=== PATIENT | female | born 1975 | race Caucasian/White ===

== ENCOUNTER → 2020-09-22 16:46 | Outpatient (CLI) | payer OTHER, SELFPAY ==
[2020-09-22 17:43] LABS: Absolute Lymphocyte Count 2.09 X10^3/uL (0.83-4.51); Basophil# 0.06 X10^3/uL; Basophil% 0.6 % (0-1); Eosinophil# 0.11 X10^3/uL; Hematocrit 41.7 % (37-47); Hemoglobin 13.3 g/dL (12.0-15.0); Lymphocyte # 2.09 X10^3/ul (0.83-4.51); Lymphocyte % 19.2 % (19-41); Mean Corp Hgb Conc 31.9 g/dL (32-36); Mean Corpuscular Hgb 28.5 pg (27.0-32.0); Mean Corpuscular Volume 89.3 fL (81-99); Mean Platelet Vol. 13.7 fl (6.2-12.0); Monocyte% 5.5 % (0-10); NRBC Flagged by Analyzer 0 % (0-5); Neutrophil # 7.96 X10^3/uL (2.7-7.7); Neutrophil % 73.2 % (47-70); Platelet Count 103 K/mm3 (150-450); RBC Distribution Width CV 13.2 % (11.6-14.6); RBC Distribution Width SD 42.9 fl (35.1-43.9); Red Blood Count 4.67 M/mm3 (4.2-5.4); White Blood Count 10.9 K/mm3 (4.4-11.0)
[2020-09-22 17:58] LABS: Erythrocyte Sedimentation Rate 10 mm/hr (0-30)
[2020-09-22 18:01] LABS: T4 Total, Thyroxin 9.3 ug/dL (4.8-13.9)
[2020-09-24 16:10] LABS: EBV Acute VCA IgM < 36.0 U/mL (0.0-35.9)
== END ==
PROVIDERS: PCP Internal Medicine; Referring Provider Internal Medicine; Visit Provider Internal Medicine
DX: D72.829 Elevated white blood cell count, unspecified (principal); Z86.16 Personal history of COVID-19
CPT/HCPCS: 36415; 84436; 85025; 85652; 86664; 86665; 86769

== ENCOUNTER → 2020-10-13 | Outpatient (CLI) | payer OTHER, SELFPAY | END | disposition home or self-care (01) | LOC: LABSPEC 15:11 | PROVIDERS: PCP Internal Medicine; Referring Provider Internal Medicine; Visit Provider Internal Medicine | DX: R30.0 Dysuria (principal) | CPT/HCPCS: 87086; 87088; 87186 ==

== ENCOUNTER → 2020-12-07 12:57 | Outpatient (CLI) | payer OTHER, SELFPAY ==
[2020-12-07 15:15] LABS: Platelet Count 109 K/mm3 (150-450)
== END ==
PROVIDERS: PCP Internal Medicine; Referring Provider Internal Medicine; Visit Provider Internal Medicine
DX: D69.3 Immune thrombocytopenic purpura (principal)
CPT/HCPCS: 36415; 85049; 86769

== ENCOUNTER → 2021-02-23 12:45 | Outpatient (CLI) | payer OTHER, SELFPAY ==
[2021-02-23 15:23] LABS: Basophil# 0.06 X10^3/uL; Basophil% 0.6 % (0-1); Hematocrit 37.9 % (37-47); Hemoglobin 11.9 g/dL (12.0-15.0); Lymphocyte % 18.9 % (19-41); Mean Corp Hgb Conc 31.4 g/dL (32-36); Mean Corpuscular Hgb 28.5 pg (27.0-32.0); Mean Corpuscular Volume 90.7 fL (81-99); Mean Platelet Vol. 13.9 fl (6.2-12.0); Monocyte# 0.56 X10^3/uL; Monocyte% 5.9 % (0-10); NRBC Flagged by Analyzer 0 % (0-5); Neutrophil # 6.98 X10^3/uL (2.7-7.7); Neutrophil % 73.2 % (47-70); Platelet Count 105 K/mm3 (150-450); RBC Distribution Width CV 13.7 % (11.6-14.6); RBC Distribution Width SD 45.6 fl (35.1-43.9); Red Blood Count 4.18 M/mm3 (4.2-5.4); White Blood Count 9.5 K/mm3 (4.4-11.0)
[2021-02-23 15:36] LABS: Vitamin B12 539 pg/mL (211-911)
[2021-02-23 15:56] LABS: ALB/GLOB Ratio 0.9 RATIO (0.9-2.4); AST(SGOT) 21 U/L (15-37); Alanine Aminotransfer ALT/SGPT 38 U/L (13-56); Albumin, Serum 3.7 g/dL (3.2-5.0); Alkaline Phosphatase 71 U/L (45-117); Anion Gap 4 (5-15); BUN 11 mg/dL (7-18); BUN/Creat Ratio 16.4 RATIO (10-20); Chloride 105 mmol/L (98-107); Creatinine, Serum 0.67 mg/dL (0.55-1.02); EST Glomerular Filtration Rate 101 mL/min (>60); Est Glom Filt Rate - Afr Amer 122 mL/min (>60); Ferritin 25 ng/mL (8-252); Globulin 4.3 g/dL (2.2-4.2); Glucose 106 mg/dL (74-106); Iron 54 ug/dL (50-170); Iron Binding Capacity,Total 371 ug/dL (250-450); PERCENT IRON SATURATION 14.6 % (15.0-55.0); Potassium 3.9 mmol/L (3.5-5.1); Sodium Level 135 mmol/L (136-145)
== END ==
PROVIDERS: PCP Internal Medicine; Referring Provider Internal Medicine; Visit Provider Internal Medicine
DX: N93.9 Abnormal uterine and vaginal bleeding, unspecified (principal)
CPT/HCPCS: 36415; 80053; 82607; 82728; 82746; 83540; 83550; 85025

== ENCOUNTER → 2021-03-01 | Outpatient (CLI) | payer OTHER, SELFPAY ==
[2021-03-04 19:57] LABS: HPV Reflexed? NOT INDICATED
== END | disposition home or self-care (01) ==
LOC: LABSPEC 15:37
PROVIDERS: PCP Internal Medicine; Referring Provider Internal Medicine; Visit Provider Internal Medicine
DX: N93.9 Abnormal uterine and vaginal bleeding, unspecified (principal)
CPT/HCPCS: 88175; G0145

== ENCOUNTER → 2021-04-14 08:21 | Outpatient (CLI) | payer OTHER, SELFPAY ==
[2021-04-14 10:33] LABS: Absolute Lymphocyte Count 1.58 X10^3/uL (0.83-4.51); Absolute Neutrophil Count 4.8 X10^3/uL (2.0-7.7); Basophil# 0.06 X10^3/uL; Basophil% 0.8 % (0-1); Eosinophils% 1.4 % (0-5); Hematocrit 33.8 % (37-47); Hemoglobin 10.4 g/dL (12.0-15.0); Lymphocyte # 1.58 X10^3/ul (0.83-4.51); Lymphocyte % 22.1 % (19-41); Mean Corp Hgb Conc 30.8 g/dL (32-36); Mean Corpuscular Hgb 25.9 pg (27.0-32.0); Mean Corpuscular Volume 84.3 fL (81-99); Mean Platelet Vol. 12.9 fl (6.2-12.0); Monocyte# 0.58 X10^3/uL; Monocyte% 8.1 % (0-10); NRBC Flagged by Analyzer 0 % (0-5); Neutrophil % 67.3 % (47-70); Platelet Count 228 K/mm3 (150-450); RBC Distribution Width CV 14.3 % (11.6-14.6); RBC Distribution Width SD 44.3 fl (35.1-43.9); Red Blood Count 4.01 M/mm3 (4.2-5.4); White Blood Count 7.1 K/mm3 (4.4-11.0)
[2021-04-14 10:46] LABS: Ferritin 3 ng/mL (8-252)
== END ==
PROVIDERS: PCP Internal Medicine; Referring Provider Internal Medicine; Visit Provider Internal Medicine
DX: D64.9 Anemia, unspecified (principal); R79.0 Abnormal level of blood mineral; M54.9 Dorsalgia, unspecified
CPT/HCPCS: 36415; 82728; 85025

== ENCOUNTER 2021-04-21 09:27 | Day surgery (SDC) | payer OTHER, SELFPAY ==
--- NOTE | 2021-04-19 10:32 | PCM.HP.BLA ---
History and Physical Date of Admission: 04/21/21 HPI: The patient is a 46 year old female presenting for pre-operative visit. She is scheduled for hysteroscopy, D&C with endometrial ablation, for abnormal uterine bleeding and anemia on 04/21/2021.. Procedure discussed along with risks, benefits and complications. Other alternatives discussed for management. Consent form signed? Yes. ? ? PAST MEDICAL HISTORY PAST MEDICAL HISTORY Diagnosis Date ? Dysmenorrhea ? ? Excessive or frequent menstruation ? ? Heavy periods resolved ? PMH - PAST MEDICAL HISTORY OF ? ? ITP ? ? PAST SURGICAL HISTORY PAST SURGICAL HISTORY Procedure Laterality Date ? D&C, DIAG AND/OR THERAPEUTIC ? ? ? Dilation & curettage X3 ? HYSTEROSCOPY, DIAGNOSTIC (SEPARATE ? 03/25/2004 ? Hysteroscopy ? ? ? CURRENT MEDICATIONS Current Outpatient Medications Medication Sig Dispense Refill ? amoxicillin-clavulanate (AUGMENTIN) 600-42.9 mg/5 mL suspension take 5 milliliters by mouth twice a day for 14 days DISCARD EXCESS MEDICATION ? ? ? ferrous sulfate 220 mg (44 mg iron)/5 mL solution take 5 milliliters by mouth twice a day ? ? ? norethindrone (AYGESTIN) 5 mg tablet Take 1 tablet by mouth once daily. ONE PO Q 1 HR UNTIL BLEEDING SLOWS, UP TO 5 TABS TODAY. THEN ONE PO QID X 3 DAYS THEN TID X 3 DAYS THEN BID X 3 DAYS THEN ONE QDAY. 30 tablet 1 ? No current facility-administered medications for this visit. ? ? ALLERGIES: Cats, Dogs, and Ragweed ? PERSONAL HISTORY: SOCIAL HISTORY Social History ? Tobacco Use ? Smoking status: Former Smoker ? ? Types: Cigarettes ? ? Quit date: 06/30/1994 ? ? Years since quittin.8 ? Smokeless tobacco: Never Used ? Tobacco comment: Pt smoked very minimal while in college for 2 years. Vaping Use ? Vaping Use: Never used Substance Use Topics ? Alcohol use: Yes ? ? Comment: occasional [ 7 month] ? Drug use: No ? FAMILY HISTORY: FAMILY HISTORY FAMILY HISTORY Problem Relation Age of Onset ? Heart Mother ? ? Heart Father ? ? Asthma Sister ? ? Cancer Maternal Uncle ? ? ? lymphoma ? ? REVIEW OF SYMPTOMS: GENERAL: denies fevers or chills ENDOCRINOLOGY: has not been on steroids Cardiology : denies palpitations or chest pain Respiratory: denies SOB or cough Hematology: denies history of prolonged bleeding or easy bruising or VTE Allergy: Denies history of personal or family history of allergy to anesthesia ? PHYSICAL EXAMINATION: ? VITALS: Last menstrual period 02/16/2021. ? GENERAL: The patient is well nourished, well hydrated in no acute distress. , The patient is oriented to time, place, and person. NECK: Supple. No lynphadenopathy, normal thyroid, no thyromegaly. LUNGS: Clear to auscultation bilaterally. no wheezes, rhonchi or rales HEART: Regular rate and rhythm, Normal heart sounds and No murmurs or gallops ? ? IMPRESSION: Abnormal uterine bleeding ? PLAN: The risks/benefits/alternatives and personal involved for the planned hysteroscopy, dilation and curettage with endometrial ablation were reviewed with the patient. Her questions were answered to her satisfaction and she desires to proceed. Consent was signed. I reviewed with her postop instructions and expectations. ? I have reviewed and updated past medical and surgical history, medications and allergies This H&P was completed in my office on 04/13/21 Assessment & Plan Assessment/Plan (1) Abnormal uterine bleeding (AUB): (2) Iron deficiency anemia due to dietary causes:
[2021-04-21] VITALS (7 sets, daily range): BP systolic 90–126; BP diastolic 59–88; PULSE 61–92; RESP 16–18; TEMP 36.2–37.3; O2SAT 94–100; BMI 26.9
[2021-04-21] MEDS: Lactated Ringers 1,000 ML 15 ML IV (10:13)
[2021-04-21 10:21] LABS: Internal QC Validated? YES +Cl - CLEAR BKGD; Pregnancy, Urine Negative Negative
--- NOTE | 2021-04-21 10:55 | EMB_PTH ---
PATIENT: ANTONIETTA PEDERSEN LOC: [facility] [place] U#:[id number] AGE/SX: 46/F ROOM: RE04/21/[address]: Dr. Zara Colorado MD : [id number] BED: DIS: 04/21/2021 SPEC #: [id number] RECD: 04/21/21 13:46 STATUS: GERARD REQ #: [id number] SAL: 04/21/21 10:[address]: Zara Colorado DEPT: SURGICAL PATHOLOGY RECD BY: Dara Vera ENTERED: 04/22/21 10:52 SP TYPE: ENDOM BX/C OTHR DR: Dr. Ana Rosa Obrien MD Tissues: Endometrium, NOS Procedures: Surgery Specimen Level IV HEADER OPERATION: Hysteroscopy, D & C Lin PRE-OP DIAGNOSIS: Abnormal uterine bleeding; iron deficiency anemia TISSUE SUBMITTED: Endometrial curettings MICROSCOPIC DIAGNOSIS Endometrial curettings: Proliferative endometrium. Fragments of benign endocervical mucosa with chronic inflammation and squamous metaplasia. LINDSEY:vega 04/25/2021 MICROSCOPIC DESCRIPTION Slides are reviewed. GROSS DESCRIPTION Received in fixative is one container labeled with the patient's name and designated endometrial curettings. The specimen consists of multiple irregular fragments of light to dark crump soft tissue that in aggregate measure 3 x 2 x 0.2 cm. The specimen is totally submitted in one cassette. / AM:vega 04/22/21 TC:5 CPT: 69122
--- NOTE | 2021-04-21 11:19 | PCM.DC ---
Discharge Instructions Diet Discharge Diet: No restrictions Activity May resume sexual activity in: 2 weeks Lifting Restrictions: none Dressing / Incision Call your doctor if your incision/area has: Sudden Increased Bleeding and Foul Smelling Discharge Call your doctor if you observe: Fever of 101 or Higher and Using more than 1 pad per hour (for 2 hrs in a row) Follow Up Care Please Follow Up With: Zara Colorado MD When: 2-4 weeks if needed. Call [phone] to make an appointment or with any concerns. Test Results: Test results from this visit will be discussed in further detail at your follow-up appointment, if applicable. Discharge Plan Admission Primary Reason for Your Visit: D&C and endometrial ablation Attending Provider: Zara Colorado Primary Care Provider: Ana Rosa Obrien Instructions Additional Instructions / Restrictions: You can use ibuprofen, naproxyn and alternate it with acetaminophen as needed for pain. Discharge Orders/Prescriptions Prescriptions: No Action NK RF: 0 Referrals / Follow Up: Ana Rosa Obrien MD [Primary Care Provider] - Disposition Disposition (needs filled in before D/C Order can be placed): Home, Self Care
--- NOTE | 2021-04-21 11:21 | OP.PCM_ITS ---
Problems Associated Problem List Diagnoses (1) Iron deficiency anemia due to dietary causes: (2) Abnormal uterine bleeding (AUB): Report of Operation Date of Procedure: 04/21/21 Pre-Operative Diagnosis: abnormal uterine bleeding, anemia due to chronic blood loss Post-Operative Diagnosis: same Surgery/Procedure Performed:: Hysteroscopy D&C with endometrial ablation Surgeon: Zara Colorado payment rep: None Type of Anesthesia: MAC/Supplemental/Local Anesthesiologist: Marco Chan Special Medications: none Specimen's removed: endometrial curretings Drains: none Estimated Blood Loss (mL): 10 Fluids Replaced: 400 Description of Procedure: The patient was taken to the OR where she was prepped and draped in dorsal lithotomy position. The weighted speculum was placed in the vagina and the anterior lip of the cervix was grasped with a single-tooth tenaculum. A paracervical block was administered with 1% lidocaine with 1- 100,000 epinephrine solution. The uterus is retroverted. The cervix was dilated serially with Hegar dilators. The 5mm hysteroscope was placed into the uterine cavity and the above findings were noted. Bilateral tubal ostia were id entified. The uterus sounded to 9 cm and the cervical length was 4 cm. The endometrial cavity length was 5 cm. The hysteroscope was removed. A gentle sharp curettage was done of the uterine cavity. The specimen was handed off and sent to pathology. The Lin device was set to 5 cm. The instrument was then seated into the endometrial cavity and the indicator was in the green. The cervical seal balloon was inflated and the uterine integrity test was passed. The ablation procedure was initiated and completed without interruption. During the ablation procedure gentle traction was held on the tenaculum and the Lin device was held up against the uterine fundus. When the ablation procedure was completed the Lin was removed. The tenaculum was removed and the tenaculum site was noted to be hemostatic. All sponge and needle counts were correct. A vaginal sweep was performed by me. The patient was awakened and taken to the recovery room in stable condition. Hysteroscopic ins: 400cc normal saline Hysteroscopic outs:250cc Findings: Endometrial cavity: Normal, no fibroids or polyps noted Cervix: Normal Vagina: Normal Grafts/Implants Used: none Procedure Start Time: 11:24 Procedure Stop Time: 11:40 Complications none Admit VTE Documentation VTE Present on Admission: No VTE Mechan Device Prophylaxis: SCD's VTE Pharm Prophylaxis ordered?: No Reason prophylaxis not ordered:: Procedure Not Indicated
[2021-04-21] MEDS: Lidocaine 1% /Epi 1:100 (20ml) 20 ML Vial (11:30)
[2021-04-21] MEDS: Lubricating Jelly 60 GM Tube 30 GM (11:30)
== END 2021-04-21 12:57 | disposition home or self-care (01) ==
LOC: SDC 09:27 → AC 09:27
PROVIDERS: PCP Internal Medicine; Referring Provider Obstetrics & Gynecology; Visit Provider Obstetrics & Gynecology
PROC: 0U5B8ZZ Destruction of Endometrium, Via Natural or Artificial Opening Endoscopic (ICD-10-PCS; CPT 58558; principal; 2021-04-21 10:40)
DX: N85.8 Other specified noninflammatory disorders of uterus (principal); N72 Inflammatory disease of cervix uteri; N93.9 Abnormal uterine and vaginal bleeding, unspecified; D50.0 Iron deficiency anemia secondary to blood loss (chronic); D50.8 Other iron deficiency anemias; Z20.822 Contact with and (suspected) exposure to COVID-19; Z87.891 Personal history of nicotine dependence
CPT/HCPCS: 00952; 58563; 81025; 87426; 88305; C9803; J7120; J2405

== ENCOUNTER 2021-06-07 13:49 | Outpatient (CLI) | payer OTHER, SELFPAY ==
[2021-06-07 15:00] LABS: Hematocrit 38.1 % (37-47); Hemoglobin 11.5 g/dL (12.0-15.0); Mean Corp Hgb Conc 30.2 g/dL (32-36); Mean Corpuscular Hgb 23.7 pg (27.0-32.0); Mean Corpuscular Volume 78.6 fL (81-99); Mean Platelet Vol. 12.3 fl (6.2-12.0); Platelet Count 188 K/mm3 (150-450); RBC Distribution Width CV 17.5 % (11.6-14.6); Red Blood Count 4.85 M/mm3 (4.2-5.4); White Blood Count 8.1 K/mm3 (4.4-11.0)
[2021-06-07 15:11] LABS: Ferritin 6 ng/mL (8-252)
== END 2021-06-07 23:59 | disposition short-term general hospital (02) ==
LOC: MTLAB 13:51
PROVIDERS: PCP Internal Medicine; Referring Provider Internal Medicine; Visit Provider Internal Medicine
DX: R79.0 Abnormal level of blood mineral (principal); D64.9 Anemia, unspecified
CPT/HCPCS: 36415; 82728; 85027